=== PATIENT | male | born 1995 | race Caucasian/White ===

== ENCOUNTER 2024-09-14 09:24 | Outpatient (CLI) | payer BC, SELFPAY | END 2024-09-14 09:25 | disposition home or self-care (01) | LOC: ANHSURGERY 09:33 | PROVIDERS: Visit Provider Surgery | DX: K42.9 Umbilical hernia without obstruction or gangrene (principal) | CPT/HCPCS: 36415; 86850; 86900; 86901 ==

== ENCOUNTER 2024-09-21 00:39 | Day surgery (SDC) | payer BC, SELFPAY ==
[2024-09-12 15:23] VITALS: BMI 32.5
--- NOTE | 2024-09-12 15:28 | PC.NURSE ---
Report to the Outpatient Waiting Room, entrance under the green pavilion located off [facility], at time _1000_ on date _[id number]_. Planned Procedure Time: _1200_.? Time changes happen often and if your time is changed the preop area will call you the afternoon before. - You and your visitor will be asked to self-screen and do not enter if you have any COVID symptoms. Please call surgeon if you need to reschedule. - A mask is optional within the hospital at this time. Patients may have clear liquids (water, carbonated beverages, clear teas, apple juice) until 3 hours prior to surgery with a maximum of 20 ounces. - No food from midnight until time of surgery and no smoking. This includes no chewing gum, candy or mints. Take only the following medications with a SIP of water on the morning of surgery: __None DO NOT STOP ANY OF YOUR OTHER PRESCRIPTION MEDICATIONS PRIOR TO SURGERY EXCEPT THE FOLLOWING Medications to discontinue per physician ____None Please no make-up, nail nepali, hairspray, perfume, deodorant, or body powder the day of surgery.? No jewelry (including any body piercings) or valuables the day of surgery, leave them at home.? Please take a shower or bath the night before, or the morning of, surgery with an antibacterial soap.? Wear comfortable, loose fitting clothing.? - Jewelry must be removed prior to entering the operating room.? Rings and piercings that are not removed may be cut off. - The hospital will not accept responsibility for valuables.? - Please leave all valuables, including medications, at home the day of surgery. If you are going home after surgery, a licensed fleet driver must drive you home.? - NO public transportation without another adult if you receive anesthesia. - We recommend that an adult stay with you for 24 hours following discharge. - We also recommend that you do not drive, make important decision, drink alcoholic beverages, or take any drugs that were not prescribed by your health care provider for at least 24 hours after your discharge time. Follow any additional instructions given to you from your surgeon. Telephone instructions given to _Devin_and asked if any additional questions and then verbalized understanding. Patient advised to call surgeon office or pre surgery nurse liaison [phone] if any additional questions.
[2024-09-21] VITALS (11 sets, daily range): BP systolic 108–138; BP diastolic 65–91; PULSE 71–88; RESP 13–24; TEMP 36.8–36.9; O2SAT 94–100; BMI 33.4
[2024-09-21] MEDS: LACTATED RINGERS 1,000 ML 30 ML IV CONT ×2 (10:00→14:06)
[2024-09-21] MEDS: KETOROLAC 15 MG/ML VIAL (*BKC) IV PUSH (10:11)
[2024-09-21] MEDS: ACETAMINOPHEN 500 MG TABLET 1000 MG PO (10:11)
--- NOTE | 2024-09-21 11:58 | P.PNAN_ITS ---
Anes - Initial Pre Proc Eval Procedure: Operation Date: 09/21/24 12:00 Proposed Procedures p Robotic Assisted Umbilical Hernia Repair with Mesh - Matilde Gusman MD Date/Time: 09/21/24 11:58 Surgeon: Matilde Gusman MD Pre Op Diagnosis: umbilical hernia Patient Data Age: 29 Gender: M Height: 1.83 m Weight: 111.7 kg Last Vital Signs Temp 36.9 C 09/21/24 09:47 Pulse 86 09/21/24 09:47 Resp 14 09/21/24 09:47 BP 125/91 H 09/21/24 09:47 Pulse Ox 98 09/21/24 09:47 O2 Del Method Room Air 09/21/24 09:47 Allergies Allergy/AdvReac Type Severity Reaction Status Date / Time No Known Allergies Allergy Verified 09/21/24 09:45 Home Medications ?Medication ?Instructions ?Recorded ?Confirmed ?Type No Home Medications 07/04/24 09/12/24 History Patient hx anesthesia problems: none Family hx anesthesia problems: none Results Review: All pre-operative results and documents have been reviewed as part of the pre-operative evaluation. [facility] Surgical History Surgical History Hx laparoscopic cholecystectomy 2018 Family History Family History Other Cancer Cerebrovascular accident Depression Diabetes mellitus Heart disease Thyroid disease Social History Social History Years smoked: 10 Smoking status: Current every day smoker Tobacco type: cigarettes Alcohol intake: current Substance use: never Do You Feel Safe in your Home?: Yes Lack of Transportation: No Lack of Food: Never True Current Housing: I Have Housing Concerned About Future Housing: No Difficulty Paying Gas/Electric Bills: No Difficulty Paying for Meds: No Currently Unemployed: No Education: High School Diploma/GED Difficulty w/ Childcare or Family Care: No Living arrangements: with family Spiritual care concerns: No Anes - Eval Final PreProcedure Day of Procedure 09/21/24 11:58 Patient weight: obese Heart: regular rate and rhythm Lungs: clear to auscultation and normal air movement Airway: Mallampati scale class III and other (Chipped right front incisor ) Neurological: alert and oriented Last oral intake: >/= 8 hours ASA classification: II Emergent: no Anesthetic plan: proceed Anesthesia type and monitoring: general ETT and standard monitoring Results Review: All pre-operative results and documents have been reviewed as part of the pre- operative evaluation. Patient states vaping this morning, trying to cut back on smoking. Informed Consent: The patient's anesthetic plan and its attendant risks and benefits were discussed with the patient/family/POA. Questions were solicited and answers provided to the satisfaction of the patient/family/POA.
--- NOTE | 2024-09-21 12:02 | P.HP_ITS ---
H&P: HPI History of Present Illness Date/Time: 09/21/24 12:02 Chief Complaint: periumbilical incisional hernia Narrative: Ulises is a 29 y/o male who presented to the office to follow up after a recent ER visit to [facility]. Patient reports he started having abdominal pain on 06/22/24 and noticed a bulge on 06/24/24. CT done on 06/24/24 showed negative for bowel obstruction, free air, free fluid, or local inflammatory change, there are a few noninflamed diverticuli of the descending colon, postoperative changes or cholecystectomy and fatty infiltration of the liver noted. Patient still having abdominal tenderness. Pt with incisional hernia through previous periumbilical incision from cholecystectomy. Review of Systems Review of Systems: All systems reviewed & are unremarkable except as noted in HPI and below PMFSH Surgical History Surgical History Hx laparoscopic cholecystectomy 2018 Family History Family History Other Cancer Cerebrovascular accident Depression Diabetes mellitus Heart disease Thyroid disease Social History Social History Years smoked: 10 Smoking status: Current every day smoker Tobacco type: cigarettes Alcohol intake: current Substance use: never Do You Feel Safe in your Home?: Yes Lack of Transportation: No Lack of Food: Never True Current Housing: I Have Housing Concerned About Future Housing: No Difficulty Paying Gas/Electric Bills: No Difficulty Paying for Meds: No Currently Unemployed: No Education: High School Diploma/GED Difficulty w/ Childcare or Family Care: No Living arrangements: with family Spiritual care concerns: No Meds Home Medications and Allergies Home Medications ?Medication ?Instructions ?Recorded ?Confirmed ?Type No Home Medications 07/04/24 09/12/24 History Allergies Allergy/AdvReac Type Severity Reaction Status Date / Time No Known Allergies Allergy Verified 09/21/24 09:45 Vital Signs Vital Signs - 24 hr 09/21/24 09:47 Temperature 36.9 C Pulse Rate 86 Respiratory Rate 14 Blood Pressure 125/91 H Pulse Oximetry 98 Oxygen Delivery Room Air Exam Const: General: cooperative, comfortable, no acute distress and obese Resp: Auscultation: clear to auscultation bilaterally Cardio: Rate: regular rate Rhythm: regular rhythm GI: Inspection: normal to inspection, non-distended and visible herniation GI Palp: No abdominal tenderness, Yes Soft to palpation and Yes Hernia present Other: reducible periumbilical incisional hernia measuring 3 cm Assessment and Plan Assessment and plan (1) Incisional hernia: Code(s): K43.2 - Incisional hernia without obstruction or gangrene Status: Acute Assessment and Plan: 3 cm defect, will setup for robotic assisted repair c mesh
--- NOTE | 2024-09-21 12:05 | WPDHPUPDATE1 ---
History and Physical Update Update Date/Time: 09/21/24 12:05 History and Physical has been reviewed, including an updated exam of the patient. There are NO changes in the patient's condition. Risks, benefits, and alternatives have been discussed and questions answered. Patient agrees to proceed with procedure.
[2024-09-21] MEDS: ceFAZolin 2 GM/D5W 50 ML 2 GM/50 ML BAG IVPB (12:12)
[2024-09-21] MEDS: BUPIVACAINE/EPINEPHRINE 0.5% 30 ML VIAL INFILTRATE (12:41)
--- NOTE | 2024-09-21 13:48 | W.PM.PROC2 ---
Procedure Note - Detailed Date of Procedure 09/21/24 Pre-op Diagnosis Periumbilical incisional hernia measuring 3 cm Post-op Diagnosis Same Procedure Performed robotic assisted repair of periumbilical incisional hernia measuring 3 cm Surgeon Matilde Gusman MD Anesthesia General Indications 29-year-old male presenting with a periumbilical incisional hernia from previous cholecystectomy Findings 3 cm periumbilical incisional hernia with incarcerated preperitoneal fat Description of Procedure The patient was taken the operating room placed in the supine position. After adequate induction of general anesthesia, the patient was prepped and draped in normal sterile fashion. A time-out was then done to verify the patient's identity as well as the procedure being performed. I began by making a 8 mm incision in the left upper quadrant. Through this, a Veress needle was placed into the peritoneal cavity and CO2 gas was insufflated. After adequate pneumoperitoneum was achieved, a 8 mm trocar was placed through this incision. I then placed the laparoscope through this trocar site and under direct visualization I placed a 8 mm port in the left mid abdomen as well as an additional 8 mm port in the left lower abdomen. The robot was then docked to the 3 port sites. I then went to the robotic console. I began by identifying the hernia. A moderate-sized incarcerated hernia was noted in the periumbilical region. Using graspers, I was able to reduce this hernia. The hernia was noted to contain a large amount of preperitoneal fat. Once reduced, I also reduced and dissected out the hernia sac. I then closed the 3 cm defect with 0 strata fix suture. I then placed a 10 x 15 cm Ventralight mesh into the abdominal cavity. The positional stitch was placed in the middle of the mesh and brought up centering the mesh over the defect. Once this was done, I used 2 0 V lock suture x 2 to circumferentially suture the mesh to the abdominal. Once the mesh was completely sutured in, I was happy with our tension-free repair. The mesh was noted to have good overlap of the defect. At this point, the robot was undocked and all ports were removed. All port sites were then closed with 4 O Monocryl subcuticular suture. The patient tolerated the procedure well, is extubated in the operating room postoperative, and transferred to the recovery room in stable condition. Implants 10 x 15 cm Ventralight mesh Estimated Blood Loss 10 Drains No Packing No Pathology None sent Complications No immediate complications Condition Stable Disposition PACU [facility] Billing Surgery - Charge Forward: Surgery Billing
[2024-09-21] MEDS: fentaNYL CITRATE INJ (*CRX) 100 MCG/2 ML VIAL 25 MCG IV PUSH ×5 (14:45→15:55)
[2024-09-21] MEDS: oxyCODONE HCL (*CRX) 5 MG TAB IR PO (15:45)
== END 2024-09-21 16:16 | disposition home or self-care (01) ==
PROVIDERS: Visit Provider Surgery
PROC: (CPT 49594; principal; 2024-09-21 12:00)
DX: K43.2 Incisional hernia without obstruction or gangrene (principal); F17.210 Nicotine dependence, cigarettes, uncomplicated; E66.9 Obesity, unspecified; Z68.33 Body mass index [BMI] 33.0-33.9, adult; Z98.890 Other specified postprocedural states; Z90.49 Acquired absence of other specified parts of digestive tract; Z80.9 Family history of malignant neoplasm, unspecified; Z82.49 Family history of ischemic heart disease and other diseases of the circulatory system
CPT/HCPCS: 49594; S2900; A9270; C1781; J0690; J1100; J1171; J1885; J2003; J2250; J2405; J2704; J3010; J7120